=== PATIENT | female | born 1980 | race Hispanic/Latino ===

== ENCOUNTER 2020-09-03 23:53 | Emergency (ER) | payer SELFPAY ==
[~2020-09-03] VITALS: Ht 167.6 cm; Wt 87.5 kg
[2020-09-04 00:36] VITALS: BP 149/95
[2020-09-04] MEDS ORDERED: MORPHINE 2 MG SYG IVP ONE (02:15)
[2020-09-04 03:43] VITALS: BP 138/87
[2020-09-04] MEDS ORDERED: IBUP-2070 PO (04:58)
[2020-09-04 05:03] VITALS: BP 133/77
== END 2020-09-04 05:12 | disposition home or self-care (01) ==
LOC: EDH 09-04 00:03
DX: S50.12XA Contusion of left forearm, initial encounter (principal); S00.511A Abrasion of lip, initial encounter; S20.319A Abrasion of unspecified front wall of thorax, initial encounter; S60.511A Abrasion of right hand, initial encounter; S20.411A Abrasion of right back wall of thorax, initial encounter; S09.90XA Unspecified injury of head, initial encounter; Y04.2XXA Assault by strike against or bumped into by another person, initial encounter; Y93.89 Activity, other specified; Y92.098 Other place in other non-institutional residence as the place of occurrence of the external cause; Y99.8 Other external cause status
CPT/HCPCS: 70450; 81025; 96374